=== PATIENT | female | born 1990 | race Asian ===

== ENCOUNTER 2017-01-03 11:39 | Outpatient (CLI) | payer OTHER ==
[~2017-01-03] VITALS: Ht 162.6 cm; Wt 86.8 kg
[2017-01-03 11:54] VITALS: BP 131/78; PULSE 96; TEMP 98.4
[2017-01-03] MEDS ORDERED: PRENATAL MVI (11:58)
[2017-01-03] MEDS ORDERED: FERRO-TIME325 MG PO (11:59)
[2017-01-03 12:20] VITALS: BP 128/69; PULSE 88
[2017-01-03 13:00] VITALS: BP 129/83; PULSE 83
== END 2017-01-03 13:05 | disposition home or self-care (01) ==
LOC: LDRO 11:39
DX: O62.9 Abnormality of forces of labor, unspecified (principal); Z3A.39 39 weeks gestation of pregnancy

== ENCOUNTER 2017-01-03 19:47 | Inpatient (IN) | payer OTHER ==
[~2017-01-03] VITALS: Ht 160 cm; Wt 88.2 kg
[2017-01-03] VITALS (14 sets, daily range): BP systolic 112–152; BP diastolic 64–94; PULSE 71–110; TEMP 97.8–98
[~2017-01-03 19:47] MED LIST: FERRO-TIME325 MG PO; PRENATAL MVI
[2017-01-03 21:09] LABS: BASO % 0.3 % (0.0-2.0); EOS # 0.1 (0.0-0.7); EOS % 0.7 % (0-4.0); GRAN # 5.6 (1.4-6.5); GRAN % 76.1 % (42.2-75.2); HEMATOCRIT 37.2 % (37.0-47.0); HEMOGLOBIN 12.3 g/dl (12.5-16.0); LYMPH # 1.1 (1.2-3.4); LYMPH % 14.5 % (20.0-51.0); MEAN CELL VOLUME 84 fl (80.0-100.0); MEAN CORPUSCULAR HEMOGLOBIN 28 pg (27.0-31.0); MEAN CORPUSCULAR HGB CONC 33 g/dl (33.0-37.0); MONO # 0.6 (0.1-0.6); PLATELET COUNT 98 K/mm3 (130-400); RED BLOOD COUNT 4.41 M/mm3 (4.10-5.30); WHITE BLOOD COUNT 7.3 K/mm3 (4.8-10.8)
[2017-01-04] VITALS (60 sets, daily range): BP systolic 92–149; BP diastolic 44–99; PULSE 76–109; TEMP 98.4–99.3
[2017-01-05 01:30] VITALS: BP 115/74; PULSE 86; TEMP 98
[2017-01-05 08:13] VITALS: BP 127/86; PULSE 88; TEMP 97.9
[2017-01-05 08:23] LABS: BASO % 0.2 % (0.0-2.0); EOS # 0.1 (0.0-0.7); EOS % 0.4 % (0-4.0); GRAN # 9.1 (1.4-6.5); GRAN % 80.1 % (42.2-75.2); LYMPH # 1.6 (1.2-3.4); LYMPH % 14.2 % (20.0-51.0); MEAN CELL VOLUME 85 fl (80.0-100.0); MEAN CORPUSCULAR HGB CONC 33 g/dl (33.0-37.0); MONO # 0.5 (0.1-0.6); MONO % 4.6 % (1.7-9.3); PLATELET COUNT 81 K/mm3 (130-400); RED BLOOD COUNT 3.67 M/mm3 (4.10-5.30); WHITE BLOOD COUNT 11.4 K/mm3 (4.8-10.8)
[2017-01-05 08:26] LABS: HEMATOCRIT 31.1 % (37.0-47.0); HEMOGLOBIN 10.1 g/dl (12.5-16.0); MEAN CORPUSCULAR HEMOGLOBIN 28 pg (27.0-31.0)
[2017-01-05 16:21] VITALS: BP 120/86; PULSE 94; TEMP 98.1
[2017-01-05 19:45] VITALS: BP 123/80; PULSE 85; TEMP 97.7
[2017-01-06 07:31] VITALS: BP 128/82; PULSE 82; TEMP 97.8
[2017-01-06] MEDS ORDERED: PERCOCET 325 MG1 TA2 PO (08:32)
[2017-01-06] MEDS ORDERED: IBU600 MG PO (08:32)
== END 2017-01-06 13:45 | disposition home or self-care (01) | DRG 767 ==
LOC: LDRO 19:47 → LDR 20:10 → OB 20:10
PROVIDERS: Obstetrics & Gynecology
PROC: 10E0XZZ Delivery of Products of Conception, External Approach (ICD-10-PCS; principal; 2017-01-03)
PROC: 10D17Z9 Manual Extraction of Products of Conception, Retained, Via Natural or Artificial Opening (ICD-10-PCS; 2017-01-03)
PROC: 0KQM0ZZ Repair Perineum Muscle, Open Approach (ICD-10-PCS; 2017-01-03)
DX: O48.0 Post-term pregnancy (principal); O73.1 Retained portions of placenta and membranes, without hemorrhage; O99.02 Anemia complicating childbirth; D50.9 Iron deficiency anemia, unspecified; O70.1 Second degree perineal laceration during delivery; Z3A.40 40 weeks gestation of pregnancy; Z37.0 Single live birth
CPT/HCPCS: J2590; J7120

== ENCOUNTER 2017-01-08 18:19 | Emergency (ER) | payer OTHER ==
[~2017-01-08] VITALS: Ht 162.6 cm; Wt 80.0 kg
[~2017-01-08 18:19] MED LIST changes: +IBU600 MG PO; +PERCOCET 325 MG1 TA2 PO
[2017-01-08 18:23] VITALS: BP 133/82; TEMP 99.2
[2017-01-08 19:44] LABS: COLLECTION METHOD CLEAN CATCH
[2017-01-08] MEDS ORDERED: DICLOXACILLIN500 MG PO (19:56)
[2017-01-08 20:06] LABS: BUDDING YEAST Present /hpf; PH 5 (5-8); URINE APPEARANCE Cloudy; URINE BACTERIA Occasional /hpf; URINE BILIRUBIN Negative (NEGATIVE); URINE BLOOD 3+ (NEGATIVE); URINE COLOR Yellow; URINE GLUCOSE Negative (NEGATIVE); URINE KETONE Negative (NEGATIVE); URINE LEUKOCYTE ESTERASE 2+ (NEGATIVE); URINE PROTEIN(semi-quant) 1+ (NEGATIVE); URINE RBC >50 /hpf; URINE UROBILINOGEN Negative (NEGATIVE)
[2017-01-08 20:07] LABS: URINE WBC >50 /hpf
[2017-01-08 20:15] VITALS: PULSE 74
[2017-01-10] MEDS ORDERED: SEPTRA DS 8001 TAB PO (11:26)
== END 2017-01-08 20:19 | disposition home or self-care (01) ==
LOC: COL.ER 18:19
PROVIDERS: Emergency Medicine
DX: O91.22 Nonpurulent mastitis associated with the puerperium (principal)